=== PATIENT | female | born 1975 | race Caucasian/White ===

== ENCOUNTER → 2020-05-04 | Outpatient (CLI) | payer OTHER | LOC: HEART 5 17:00 | DX: R06.02 Shortness of breath (principal); R94.2 Abnormal results of pulmonary function studies; F17.210 Nicotine dependence, cigarettes, uncomplicated | CPT/HCPCS: 94010; 94729 ==

== ENCOUNTER → 2022-01-16 | Outpatient (CLI) | payer OTHER | LOC: CT 14:29 | DX: R22.1 Localized swelling, mass and lump, neck (principal); E78.00 Pure hypercholesterolemia, unspecified; I27.82 Chronic pulmonary embolism | CPT/HCPCS: 70498; 71275; Q9967 ==